=== PATIENT | female | born 1985 | race Caucasian/White ===

== ENCOUNTER 2021-09-27 09:38 | Emergency (ER) | payer BC ==
[2021-09-27] MEDS ORDERED: Benzocaine-Menthol 82.5 ML CAN TOP SCH (10:15)
== END 2021-09-27 10:11 ==
LOC: CSHERS 09:38
DX: S31.41XA Laceration without foreign body of vagina and vulva, initial encounter (principal); E03.9 Hypothyroidism, unspecified; X58.XXXA Exposure to other specified factors, initial encounter
CPT/HCPCS: 99283

== ENCOUNTER 2022-05-15 07:44 | Outpatient (CLI) | payer BC ==
[2022-05-15] MEDS ORDERED: EPINEPHrine 1 MG/ML AMP ONE (08:01)
[2022-05-15] MEDS ORDERED: Sodium Bicarbonate 2.5 MEQ/5 ML VIAL ONE (08:01)
[2022-05-15] MEDS ORDERED: Lidocaine 1% PF 5 ML VIAL ONE (08:01)
[2022-05-15 08:57] VITALS: BP 138/78
[2022-05-15] MEDS ORDERED: Iopamidol 300 61% 50 ML VIAL FS ONE (15:32)
== END 2022-05-15 07:45 | disposition home or self-care (01) ==
LOC: CSHRAD 07:44
PROVIDERS: ATTEND Orthopaedic Surgery
DX: M25.511 Pain in right shoulder (principal); M75.111 Incomplete rotator cuff tear or rupture of right shoulder, not specified as traumatic
CPT/HCPCS: 23350; J0171; Q9967